=== PATIENT | female | born 1985 | race Caucasian/White ===

== ENCOUNTER 2019-03-23 00:28 | Emergency (ER) | payer SELFPAY ==
[~2019-03-23] VITALS: Ht 162.6 cm; Wt 73.0 kg
[2019-03-23 01:00] VITALS: BP 111/80
[2019-03-23] MEDS ORDERED: MORPHINE SULFATE 4 MG/ML CPJ (NOT FOR IM USE) IV STA (01:35)
[2019-03-23] MEDS ORDERED: ONDANSETRON HCL 4MG/2ML INJ IV STA (01:35)
[2019-03-23] MEDS ORDERED: MAGNESIUM/ALUMINUM HYDROXIDE/SIMETHICONE 30ML UDC PO STA (01:35)
[2019-03-23] MEDS ORDERED: SODIUM CHLORIDE 0.9% 1,000 ML IV ONE (01:35)
== END 2019-03-23 01:52 | disposition left against medical advice (07) ==
LOC: ER 01:29
DX: R10.13 Epigastric pain (principal); K21.9 Gastro-esophageal reflux disease without esophagitis
CPT/HCPCS: 81025; 99282; J7030; Z7610